=== PATIENT | male | born 1985 | race Caucasian/White ===

== ENCOUNTER 2018-05-03 04:54 | Emergency (ER) | payer OTHER ==
[~2018-05-03] VITALS: Ht 190.5 cm; Wt 142.9 kg
[2018-05-03] MEDS ORDERED: XANAX0.25 MG (05:08)
[2018-05-03] MEDS ORDERED: PERCOCET 10-321 EACH (05:08)
[2018-05-03] MEDS ORDERED: DEPAKOTE ER500 MG (05:09)
[2018-05-03] MEDS ORDERED: GABAPENTIN100 MG (05:09)
[2018-05-03] MEDS ORDERED: SEROQUEL50 MG (05:10)
[2018-05-03] MEDS ORDERED: UPTRAVI200 MCG (05:10)
[2018-05-03] MEDS ORDERED: LIORESAL I500 MCG/1 (05:10)
== END 2018-05-04 00:38 | disposition home or self-care (01) ==
LOC: ER 04:54
DX: S70.02XA Contusion of left hip, initial encounter (principal); S70.01XA Contusion of right hip, initial encounter; S80.12XA Contusion of left lower leg, initial encounter; S80.11XA Contusion of right lower leg, initial encounter; S97.82XA Crushing injury of left foot, initial encounter; S97.81XA Crushing injury of right foot, initial encounter; I87.2 Venous insufficiency (chronic) (peripheral); N39.0 Urinary tract infection, site not specified; D72.828 Other elevated white blood cell count; F31.89 Other bipolar disorder; W23.1XXA Caught, crushed, jammed, or pinched between stationary objects, initial encounter; Y93.89 Activity, other specified; Y92.813 Airplane as the place of occurrence of the external cause; Y99.8 Other external cause status